=== PATIENT | female | born 1985 | race Caucasian/White ===

== ENCOUNTER 2017-10-29 04:04 | Emergency (ER) | payer MEDICAID ==
[~2017-10-29] VITALS: Ht 165.1 cm; Wt 53.0 kg
[2017-10-29 05:20] LABS: UCG SCREEN NEGATIVE
[2017-10-29 06:56] VITALS: BP 111/77
== END 2017-10-29 06:58 | disposition home or self-care (01) ==
LOC: ER 04:04
DX: S05.12XA Contusion of eyeball and orbital tissues, left eye, initial encounter (principal); Y04.0XXA Assault by unarmed brawl or fight, initial encounter; Y93.89 Activity, other specified; Y92.89 Other specified places as the place of occurrence of the external cause; Y99.8 Other external cause status
CPT/HCPCS: 70450; 70486; 81025; 99285

== ENCOUNTER 2020-01-20 15:43 | Emergency (ER) | payer SELFPAY ==
[~2020-01-20] VITALS: Ht 165.1 cm; Wt 61.0 kg
[2020-01-20 16:37] VITALS: BP 135/78
[2020-01-20] MEDS ORDERED: TETRACAINE 0.5% OPHTH DROPS 4ML LEFTEYE ONE (18:45)
[2020-01-20] MEDS ORDERED: FLUORESCEIN SODIUM 1MG/STRIP LEFTEYE ONE (18:45)
[2020-01-20] MEDS ORDERED: IBUPROFEN 800MG TABLET PO ONE (19:30)
== END 2020-01-20 19:48 | disposition home or self-care (01) ==
LOC: ER 15:43
DX: H11.32 Conjunctival hemorrhage, left eye (principal); Z98.890 Other specified postprocedural states
CPT/HCPCS: 99283